=== PATIENT | female | born 1955 | race Asian ===

== ENCOUNTER 2017-10-13 17:43 | Inpatient (IN) | payer SELFPAY ==
[~2017-10-13] VITALS: Ht 154.9 cm; Wt 49.9 kg
[~2017-10-13 17:43] MED LIST: Sodium Chloride 500ML 500 ML IV ONE
[2017-10-13 18:00] VITALS: BP 66/52
--- NOTE | 2017-10-13 18:08 | Emergency Room Report ---
History of Present Illness General Chief Complaint: Syncope Source: Patient Present Illness HPI Patient is a 62-year-old female presenting with a syncopal episode at [facility] just prior to arrival. It is unclear how long the episode lasted but it appeared to be brief. The patient denies any trauma. The patient just got off of an airplane from [place]. She states that she feels the reason she passed out was that she incorrectly made reservations for a hotel room for tomorrow but not tonight and found out this while she was at [facility] and became upset. She is also complaining of mild chest discomfort associated. Allergies: Coded Allergies: No Known Allergies (Unverified , 10/13/17) Patient History Limited by: language barrier Past Medical History: none Past Surgical History: none Pertinent Family History: none Social History: Denies: smoking, alcohol use, drug use Nursing Documentation-[facility] Past Medical History: No Stated History Review of Systems Constitutional: Denies: no symptoms, see HPI, chills, sweats, fever, malaise, weakness, other Eye: Denies: no symptoms, see HPI, eye pain, blurred vision, tearing, double vision, nose pain, nose congestion, acuity changes, discharge, other ENT: Denies: no symptoms, see HPI, ear pain, ear discharge, nose pain, nose congestion, throat pain, throat swelling, mouth pain, hearing loss, nasal discharge, other Respiratory: Denies: no symptoms, see HPI, cough, orthopnea, shortness of breath, stridor, wheezing, CADE, sputum, other Cardiovascular: Reports: chest pain, syncope; Denies: no symptoms, see HPI, edema, palpitations, PND, other Gastrointestinal: Denies: no symptoms, see HPI, abdominal pain, constipation, diarrhea, nausea, vomiting, melena, hematemesis, other Genitourinary: Denies: no symptoms, see HPI, discharge, dysuria, frequency, hematuria, pain, retention, incontinence, urgency, vag bleed/dc, other Musculoskeletal: Denies: no symptoms, see HPI, back pain, gout, joint pain, joint swelling, muscle pain, muscle stiffness, other Skin: Denies: no symptoms, see HPI, rash, change in color, change in hair/nails , dryness, lesions, other Neurological: Denies: no symptoms, see HPI, headache, numbness, paresthesia, seizure, tingling, tremors, focal weakness, syncope, dizziness, other Endocrine: Denies: no symptoms, see HPI, excessive sweating, flushing, intolerance to temperature, increased thirst, increased urine, unexplained weight loss, other Physical Exam Vital Signs Date Time Temp Pulse Resp B/P (MAP) Pulse Ox O2 Delivery O2 Flow Rate FiO2 10/13/17 17:34 65 18 110/61 99 Room Air Sp02 EP Interpretation: reviewed, normal General Appearance: no apparent distress, alert, GCS 15, non-toxic Head: normocephalic, atraumatic Eyes: bilateral eye normal inspection, bilateral eye PERRL ENT: hearing grossly normal, normal pharynx, no angioedema, normal voice Neck: full range of motion, supple/symm/no masses Respiratory: chest non-tender, lungs clear, normal breath sounds, speaking full sentences Cardiovascular #1: regular rate, rhythm, no edema Cardiovascular #2: 2+ carotid (R), 2+ carotid (L), 2+ radial (R), 2+ radial (L) , 2+ dorsalis pedis (R), 2+ dorsalis pedis (L) Gastrointestinal: normal bowel sounds, non tender, soft, non-distended, no guarding, no rebound Rectal: deferred Genitourinary: normal inspection, no CVA tenderness Musculoskeletal: back normal, gait/station normal, normal range of motion, non- tender, calf tenderness Neurologic: alert, oriented x3, responsive, motor strength/tone normal, sensory intact, speech normal Psychiatric: judgement/insight normal, memory normal, mood/affect normal, no suicidal/homicidal ideation Reflexes: 3+ bicep (R), 3+ bicep (L), 3+ tricep (R), 3+ tricep (L), 3+ knee (R) , 3+ knee (L) Skin: normal color, no rash, warm/dry, well hydrated Lymphatic: no adenopathy Medical Decision Making Diagnostic Impression: Primary Impression: Syncope Qualified Codes: R55 - Syncope and collapse Additional Impression: Bradycardia ER Course Patient is a 62-year-old female who presents status post syncopal episode. Through the [place] automatic dry starch operator [id number] the patient is agreeable to staying in the hospital. Laboratory results have been gone over with her as an addition to the EKG. She shows evidence of symptomatic bradycardia with heart rates as low as 46 for sustained periods. At this time the patient's heart rate has improved into the mid 60s but intermittently will drop down to the mid 40s. Blood pressure, which was originally 60/40 by EMS, has improved. She did have hypotensive readings of 95/67. Of note, although pt is not a [place] citizen and does not drive, I have instructed her to avoid driving until cleared by her physician Laboratory Tests Test 10/13/17 17:50 White Blood Count 8.5 K/UL (4.8-10.8) Red Blood Count 3.54 M/UL (4.20-5.40) L Hemoglobin 10.8 G/DL (12.0-16.0) L Hematocrit 33.2 % (37.0-47.0) L Mean Corpuscular Volume 94 FL (80-99) Mean Corpuscular Hemoglobin 30.6 PG (27.0-31.0) Mean Corpuscular Hemoglobin Concent 32.6 G/DL (32.0-36.0) Red Cell Distribution Width 12.0 % (11.6-14.8) Platelet Count 167 K/UL (150-450) Mean Platelet Volume 5.4 FL (6.5-10.1) L Neutrophils (%) (Auto) 52.4 % (45.0-75.0) Lymphocytes (%) (Auto) 39.8 % (20.0-45.0) Monocytes (%) (Auto) 5.0 % (1.0-10.0) Eosinophils (%) (Auto) 1.9 % (0.0-3.0) Basophils (%) (Auto) 0.9 % (0.0-2.0) D-Dimer 0.34 mg/L FEU (0.00-0.49) Sodium Level 143 MMOL/L (136-145) Potassium Level 3.3 MMOL/L (3.5-5.1) L Chloride Level 108 MMOL/L (98-107) H Carbon Dioxide Level 23 MMOL/L (21-32) Anion Gap 12 mmol/L (5-15) Blood Urea Nitrogen 16 mg/dL (7-18) Creatinine 0.7 MG/DL (0.55-1.30) Estimate Glomerular Filtration Rate > 60 mL/min (>60) Glucose Level 157 MG/DL (74-106) H Calcium Level 8.1 MG/DL (8.5-10.1) L Total Bilirubin 0.3 MG/DL (0.2-1.0) Aspartate Amino Transferase (AST) 18 U/L (15-37) Alanine Aminotransferase (ALT) 22 U/L (12-78) Alkaline Phosphatase 44 U/L (46-116) L Total Creatine Kinase 32 U/L (26-308) Creatine Kinase MB 0.5 NG/ML (0.0-3.6) Creatine Kinase MB Relative Index 1.5 Troponin I 0.000 ng/mL (0.000-0.056) Total Protein 6.7 G/DL (6.4-8.2) Albumin 3.4 G/DL (3.4-5.0) Globulin 3.3 g/dL Albumin/Globulin Ratio 1.0 (1.0-2.7) EKG Diagnostic Results EP Interpretation: EKG at 1759-sinus rhythm, rate 54, normal axis, no acute ST or T-wave abnor Rate: bradycardiac Chest X-Ray Diagnostic Results Chest X-Ray Diagnostic Results : # of Views/Limited/Complete: 1 View Indication: Other EP Interpretation: Yes Interpretation: no consolidation, no effusion, no pneumothorax, no acute cardiopulmonary disease Last Vital Signs Date Time Temp Pulse Resp B/P (MAP) Pulse Ox O2 Delivery O2 Flow Rate FiO2 10/13/17 17:34 65 18 110/61 99 Room Air Disposition: ADMITTED INPATIENT Condition: Stable Scripts No Active Prescriptions or Reported Meds Kiko Wise MD Oct 13, 2017 18:08
[2017-10-13 18:21] LABS: BASOPHILS % (AUTO) 0.9 % (0.0-2.0); EOSINOPHILS % (AUTO) 1.9 % (0.0-3.0); HEMATOCRIT 33.2 % (37.0-47.0); HEMOGLOBIN 10.8 G/DL (12.0-16.0); LYMPHOCYTES % (AUTO) 39.8 % (20.0-45.0); MEAN CORPUSCULAR VOLUME 94 FL (80-99); NEUTROPHILS % (AUTO) 52.4 % (45.0-75.0); PLATELET COUNT 167 K/UL (150-450); RED BLOOD COUNT 3.54 M/UL (4.20-5.40); WHITE BLOOD COUNT 8.5 K/UL (4.8-10.8)
[2017-10-13 18:27] LABS: ANION GAP 12 mmol/L (5-15); BLOOD UREA NITROGEN 16 mg/dL (7-18); CALCIUM 8.1 MG/DL (8.5-10.1); CARBON DIOXIDE 23 MMOL/L (21-32); CHLORIDE 108 MMOL/L (98-107); CREATININE 0.7 MG/DL (0.55-1.30); POTASSIUM 3.3 MMOL/L (3.5-5.1); SODIUM 143 MMOL/L (136-145)
[2017-10-13 18:30] VITALS: BP 102/56
[2017-10-13 18:42] LABS: ALANINE AMINOTRANSFERASE 22 U/L (12-78); ALBUMIN 3.4 G/DL (3.4-5.0); ALKALINE PHOSPHATASE 44 U/L (46-116); ASPARTATE AMINO TRANSFERASE 18 U/L (15-37); BILIRUBIN,TOTAL 0.3 MG/DL (0.2-1.0); CKMB 0.5 NG/ML (0.0-3.6); CREATINE KINASE 32 U/L (26-308)
[2017-10-13 19:17] VITALS: BP 103/68
[2017-10-13 20:55] VITALS: BP 110/69
[2017-10-13 21:20] VITALS: BP 110/65
[2017-10-13 21:30] VITALS: BP 115/65
[2017-10-14] VITALS: BP 118/71
[2017-10-14] MEDS: NS w/KCl 20mEq 1,000 ML IV SCH ×2 (00:56→13:35)
[2017-10-14 01:14] LABS: EOSINOPHILS % (AUTO) 0.5 % (0.0-3.0); HEMATOCRIT 37.4 % (37.0-47.0); HEMOGLOBIN 12.5 G/DL (12.0-16.0); LYMPHOCYTES % (AUTO) 30.9 % (20.0-45.0); MEAN CORPUSCULAR VOLUME 92 FL (80-99); NEUTROPHILS % (AUTO) 62.6 % (45.0-75.0); PLATELET COUNT 180 K/UL (150-450); RED BLOOD COUNT 4.06 M/UL (4.20-5.40); RED CELL DISTRIBUTION WIDTH 11.4 % (11.6-14.8); WHITE BLOOD COUNT 7.4 K/UL (4.8-10.8)
[2017-10-14 02:08] LABS: ALANINE AMINOTRANSFERASE 36 U/L (12-78); ALBUMIN 3.9 G/DL (3.4-5.0); ALBUMIN/GLOBULIN RATIO 1.1 (1.0-2.7); ALKALINE PHOSPHATASE 53 U/L (46-116); ANION GAP 13 mmol/L (5-15); ASPARTATE AMINO TRANSFERASE 27 U/L (15-37); BILIRUBIN,TOTAL 0.6 MG/DL (0.2-1.0); BLOOD UREA NITROGEN 10 mg/dL (7-18); CARBON DIOXIDE 24 MMOL/L (21-32); CHLORIDE 107 MMOL/L (98-107); CREATININE 0.6 MG/DL (0.55-1.30); POTASSIUM 3.5 MMOL/L (3.5-5.1); SODIUM 144 MMOL/L (136-145)
[2017-10-14 04:00] VITALS: BP 116/72
[2017-10-14 08:00] VITALS: BP 126/69
--- NOTE | 2017-10-14 11:26 | Diagnostic Imaging Report ---
Indication: Chest pain Technique: One view of the chest Comparison: none Findings: Lungs and pleural spaces are clear. Heart size is normal Impression: No acute process This agrees with the preliminary interpretation provided by the emergency room physician
[2017-10-14 12:00] VITALS: BP 102/71
--- NOTE | 2017-10-14 12:15 | History and Physical Report ---
DATE OF ADMISSION: 10/13/2017 HISTORY OF PRESENT ILLNESS: This is a 62-year-old female, who came to the emergency room yesterday after reporting a syncopal episode. The patient apparently had just arrived here from [place]; she checked into a hotel, but realized that the hotel elevations were for the subsequent day. The patient became upset. She went to [facility] where apparently she had a syncopal episode. At that time, she was annoyed and also had chest discomfort. It was documented she was hypotensive and bradycardic. She came to the emergency room at [place] where she was also found to be bradycardic. Subsequently, after fluids, her heart rate improved. She does not report taking any home medications. PAST MEDICAL HISTORY: None. PAST SURGICAL HISTORY: None. ALLERGIES: None. REVIEW OF SYSTEMS: Denies any headaches, hematemesis, melena, or hematochezia. PHYSICAL EXAMINATION: VITAL SIGNS: Blood pressure is 110/60, heart rate 85, respiratory rate 18, she is afebrile. GENERAL: Reveals a 62-year-old female. HEENT: Unremarkable. CHEST: Clear breath sounds bilaterally. ABDOMEN: Soft. NEUROLOGIC: Nonfocal. LABORATORY DATA: Overnight troponins have been negative x3. CBC and BMP unremarkable. 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 IMPRESSION: 1. Bradycardia. 2. Syncope. DISCUSSION: At this time, the patient has been monitored for 24 hours. Her telemetry has been normal. Troponins are negative. She is asymptomatic. I believe she is safe for discharge. Discussed with the patient. Advised outpatient followup with her own physicians. Luis Ma M.D. DR: CHERYLE JOB#: [id number] CC:
--- NOTE | 2017-10-15 15:45 | Cardiology Report ---
APPROVED REPORT EKG Measurement Heart [id number] Sinus bradycardia with sinus arrhythmia Minimal voltage criteria for LVH, may be normal variant Borderline ECG
--- NOTE | 2017-10-23 11:45 | Discharge Summary ---
Discharge Summary Discharge Summary _ DATE OF ADMISSION: 10/13/2017 DATE OF DISCHARGE: 10/14/2017 REASON FOR ADMISSION: 62 years old female without significant past medical history, presented after syncopal episodes prior to arrival to emergency department. Patient denied any trauma. Patient was visiting from [place]. She made hotel reservations, but upon arrival to the hotel found, that reservations were for the next day. Patient became upset and went to nearby [facility], where she sustained syncopal episode. Patient felt that syncopal episode could be related to her being upset. Patient also complained of mild chest discomfort. Upon evaluation vital signs were stable , troponin was negative . EKG revealed sinus bradycardia, no acute ischemic changes. Heart rate was as low as 46 and was sustained. Patient started on the IV hydration. Heart rate improved significantly, but still had intermittent drop down to mid 40s. Blood pressure initially was 60/40 by paramedics, but improved with IV hydration. Patient admitted with diagnoses of syncope, bradycardia HOSPITAL COURSE: Patient admitted to telemetry floor. Patient was continued on on IV hydration. Serial troponin 3 were negative. Telemetry revealed no acute ischemic changes. Heart rate was predominantly in the low 60 with one episode of bradycardia down to 40 , which happened early in the morning when she was asleep. Patient was asymptomatic . Patient was stable for discharge. Patient was advised to follow-up with her primary physician Patient was advised on ER precautions and return, should symptoms return. Due to the rapid and unexpected improvement in patient condition, patient was discharged in one day. FINAL DIAGNOSES: Syncopal episode Bradycardia DISCHARGE MEDICATIONS: See Medication Reconciliation list. DISCHARGE INSTRUCTIONS: Patient was discharged home/ reserved hot I have been assigned to dictate discharge summary for this account. I was not involved in the patient's management. Lucía Cotton NP Oct 23, 2017 11:45
== END 2017-10-14 15:50 | disposition home or self-care (01) | DRG 310 ==
LOC: EDBD 17:43 → EMR 18:31 → 2E 19:40 → EDBEDREQ 20:04
DX: R00.1 Bradycardia, unspecified (principal); R55 Syncope and collapse
CPT/HCPCS: 36415; 71045; 80053; 82550; 82553; 83880; 84443; 84484; 85025; 85379; 93005; J8499